=== PATIENT | male | born 1975 | race African-American/Black ===

== ENCOUNTER 2018-09-21 22:38 | Emergency (ER) | payer MEDICAID ==
[~2018-09-21] VITALS: Ht 188 cm; Wt 86.6 kg
[2018-09-21 22:39] VITALS: BP 142/63; PULSE 108; RESP 22; Ht 188 cm; Wt 86.6 kg
[2018-09-21] MEDS ORDERED: ACETAMINOPHEN 500 MG TAB PO STA (23:58)
[2018-09-21] MEDS ORDERED: KETOROLAC 60 MG INJ IM STA (23:58)
[2018-09-22] MEDS ORDERED: CEFTRIAXONE 1 GM INJ IM ONE
[2018-09-22] MEDS ORDERED: traMADol 50 MG TAB PO ONE
[2018-09-22] MEDS ORDERED: LIDOCAINE 1% (MPF) 5 ML VIAL INFIL ONE
[2018-09-22] MEDS ORDERED: TRAM50TA2 PO (01:11)
[2018-09-22] MEDS ORDERED: CEPH-443 PO (01:11)
[2018-09-22] MEDS ORDERED: ACET-2047 PO (01:11)
[2018-09-22] MEDS ORDERED: NAPR-985 PO (01:11)
--- NOTE | 2018-09-22 01:31 | ERD ---
ER Documentation Chief Complaint Chief Complaint LEFT LEG PAIN X'S 1 YEAR HPI History of Present Illness: 43-year-old male with no known past medical history coming in with 2 days ago for left lower leg pain. Patient reports pain is been present for 1 year in which he was seen at [facility] and was giving an unknown diagnosis. Patient reports the leg always has rough skin with common leg areas of skin breaking and causing mild bleeding. Patient reports severe pain over the last 2 days which pain has increased and swelling has occurred. Patient with no recent travel or long periods of immobilization. Patient currently sitting in a wheelchair. At home pharmacological/nonpharmacological treatment for symptoms: Denies Denies social concerns; Denies recent foreign travel ROS All systems reviewed and are negative except as per history of present illness. Medications Home Meds Active Scripts Silver Sulfadiazine* (Thermazene*) 1%-50 gm Cream..g., 1 APPLIC TOP DAILY for INFECTION for 10 Days, #2 JAR 2 Refills Prov:ATUL SOUZA NP 09/22/18 Naproxen* (Naprosyn*) 500 Mg Tablet, 500 MG PO BID PRN for PAIN AND/OR INFLAMMATION, #30 TAB Prov:ATUL SOUZA V [employer] 09/22/18 Tramadol HCl (Tramadol HCl) 50 Mg Tablet, 50 MG PO Q8 for PAIN LEVEL 6-10, #6 TAB Prov:ATUL SOUZA [employer] 09/22/18 Acetaminophen* (Acetaminophen*) 650 Mg Tablet, 650 MG PO Q6H PRN for PAIN AND OR ELEVATED TEMP, #30 TAB Prov:ATUL SOUZA [employer] 09/22/18 Cephalexin* (Keflex*) 500 Mg Capsule, 500 MG PO QID for leg infection for 10 Days, CAP Prov:ATUL SOUZA V [employer] 09/22/18 Allergies Allergies: Coded Allergies: No Known Allergy (Unverified , 09/21/18) PMhx/Soc Medical and Surgical Hx: pt denies Medical Hx, pt denies Surgical Hx Hx Alcohol Use: No Hx Substance Use: No Hx Tobacco Use: No Smoking Status: Never smoker FmHx Family History: diabetes Physical Exam Vitals Vital Signs Date Temp Pulse Resp B/P (MAP) Pulse Ox O2 O2 Flow FiO2 Time Delivery Rate 09/21/18 99.2 108 22 142/63 99 22:39 (89) Physical Exam Const: No acute distress Head: Atraumatic Eyes: Normal Conjunctiva ENT: Normal External Ears, Nose and Mouth. Neck: Full range of motion. No meningismus. Resp: Clear to auscultation bilaterally Cardio: Regular rate and rhythm, no murmurs Abd: Soft, non tender, non distended. Normal bowel sounds Skin: No petechiae; dried skin noted to left lower extremity consistent with venous stasis with ulceration with open wounds, no purulent drainage noted Back: No midline or flank tenderness Ext: No cyanosis, or edema Neur: Awake and alert Psych: Normal Mood and Affect Results 24 hrs Current Medications Medications Dose Sig/Erika Start Time Status Last (Trade) Ordered Route PRN Stop Time Admin Dose Reason Admin Ketorolac 60 mg ONCE STAT 09/21/18 DC 09/22/18 Tromethamine IM 23:58 00:14 (Toradol) 09/22/18 00:03 Tramadol 50 mg ONCE ONCE 09/22/18 DC 09/22/18 HCl PO 00:00 00:12 (Ultram) 09/22/18 00:03 Ceftriaxone 1 gm ONCE ONCE 09/22/18 DC 09/22/18 Sodium IM 00:00 00:12 (Rocephin) 09/22/18 00:03 Lidocaine 2.1 ml ONCE ONCE 09/22/18 DC 09/22/18 (Xylocaine INFIL 00:00 00:12 1% (Mpf)) 09/22/18 00:03 1,000 mg ONCE STAT 09/21/18 DC 09/22/18 Acetaminophen PO 23:58 00:12 (Tylenol 09/22/18 00:03 Tab) Procedures/MDM ED course includes a thorough examination and history. Medications: IM ceftriaxone, tramadol, Toradol, dexamethasone Imaging: --- Labs: --- Low suspicion for life-threatening medical emergency. Low suspicion for infectious life-threatening emergency. Low suspicion for DVT, negative Homans sign. Otherwise healthy patient presenting with constellation of symptoms likely representing venous stasis ulcer/cellulitis as characterized by history, physical exam findings. No respiratory distress, otherwise relatively well appearing and nontoxic. Patient educated on return precautions and disposition given. Pain patient verbalizes understanding of instructions. Patient educated on diagnoses, prescriptions, follow-up care, return precautions. Strict return precautions given for worsening condition; questions answered discharge. Disposition for discharge with followup in 2 days with PCP/clinic. 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 FURTHER EVALUATION AND TREATMENT OF YOUR CONDITION CAN WAIT UNTIL YOU ARE SEEN IN YOUR DOCTORS OFFICE WITHIN THE NEXT 1-2 DAYS. IT IS YOUR RESPONSIBILITY TO MAKE AN APPOINTMENT FOR FOLOW-UP CARE. IF YOU HAVE A PRIMARY DOCTOR --you should call your primary doctor and schedule an appointment IF YOU DO NOT HAVE A PRIMARY DOCTOR YOU CAN CALL OUR PHYSICIAN REFERRAL HOTLINE AT IF YOU CAN NOT AFFORD TO SEE A PHYSICIAN YOU CAN CHOSE FROM THE FOLLOWING [facility] [address] [facility]. [facility] [address] [facility] [facility] [address] [facility] [address] [facility] [address] [facility]. [facility]. [address] [facility] [facility] YOU HAVE RECEIVED A MEDICAL SCREENING EXAM AND THE RESULTS INDICATE THAT YOU DO NOT HAVE A CONDITION THAT REQUIRES URGENT TREATMENT IN THE EMERGENCY DEPARTMENT. FURTHER EVALUATION AND TREATMENT OF YOUR CONDITION CAN WAIT UNTIL YOU ARE SEEN IN YOUR DOCTORS OFFICE WITHIN THE NEXT 1-2 DAYS. IT IS YOUR RESPONSIBILITY TO MAKE AN APPOINTMENT FOR FOLOW-UP CARE. IF YOU HAVE A PRIMARY DOCTOR --you should call your primary doctor and schedule and appointment IF YOU DO NOT HAVE A PRIMARY DOCTOR YOU CAN CALL OUR PHYSICIAN REFERRAL HOTLINE AT . IF YOU CAN NOT AFFORD TO SEE A PHYSICIAN YOU CAN CHOSE FROM THE FOLLOWING [facility] INSTITUTIONS: [facility] [place] [address] [place] [address] [facility] [address] [place] [address] [facility] [address] [place] [address] Additional Instructions: Thank you very much for allowing us to participate in your care. Your health and safety is our top priority at [facility]. It is important to read all discharge instructions and education provided in your discharge packet. Call your primary care doctor TOMORROW for an appointment during the next 2-4 days and bring all the information and medications prescribed. Have prescriptions filled and follow precisely the directions on the label. -Ibuprofen and acetaminophen is for pain and fever; both medications can be given at the same time if it is time for the next dose (acetaminophen every 4 hours, ibuprofen every 6 hours). It is important to have adequate fever control to prevent febrile complications such as seizures. -Kelflex is an antibiotic; take this medication every day every 6 hours as listed on your prescription. You must complete the entire course of treatment that is listed on your prescription this is very important because it takes a certain number of days to kill the bacteria that is causing the infection. -Naproxen is a anti-inflammatory/pain medication; take this medication daily as prescribed for the next week to help with swelling/inflammation/pain. -Tramadol is an opiate pain medication; take this medication as needed for moderate to severe pain. No operating of heavy machinery while taking this medication. It may cause drowsiness. If the symptoms get worse and your provider is unavailable, return to the Emergency Department immediately. ATUL SOUZA NP Sep 22, 2018 01:31
[2018-09-22] MEDS ORDERED: SLSL1C50 TOP (01:32)
== END 2018-09-22 01:59 | disposition home or self-care (01) ==
LOC: FTE 22:38
DX: L03.116 Cellulitis of left lower limb (principal); I83.028 Varicose veins of left lower extremity with ulcer other part of lower leg; L97.829 Non-pressure chronic ulcer of other part of left lower leg with unspecified severity
CPT/HCPCS: 96372; J0696; J1885; Z7502; Z7610